=== PATIENT | female | born 1985 | race American Indian/Alaskan Native ===

== ENCOUNTER 2017-05-10 19:01 | Emergency (ER) | payer SELFPAY ==
[2017-05-11] MEDS ORDERED: DUONEB *Not for PRN Use IH ONE (00:47)
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
[2017-05-11 02:11] VITALS: BP 138/80
== END 2017-05-11 02:21 | disposition home or self-care (01) ==
LOC: ED 19:01
DX: J70.5 Respiratory conditions due to smoke inhalation (principal)
CPT/HCPCS: 99282

== ENCOUNTER 2020-02-13 09:44 | Inpatient (IN) | payer BC, OTHER ==
--- NOTE | 2020-02-12 19:06 | History and Physical Report ---
History of Present Illness Date of examination: 02/09/20 History of present illness: Menstrual History Regularity: irregular Menses every: 28-35 days Duration: 5 LMP: 06/02/2019 LMP reliability: month known LMP character: normal test type: urine test BC at conception: none Planned ? yes EDC Calculations LMP: 03/08/2020 EDC Confirmation: 02/17/2020 Past History : 3 Term Births: 2 Premature Births: 0 Living Children: 0 Para: 2 Mult. Births: 0 Prev : 0 Prev. attempt? 0 Aborta: 0 Elect. Ab: 0 Spont. Ab: 0 Ectopics: 0 # 1 Delivery date: 03/21/2006 Weeks Gestation: 39 labor: no Delivery type: Hours of labor: 12 Anesthesia type: epidural Delivery location: [facility] Sex: Female weight: 8 lbs ? oz Name: Kasey Comments: She states she was pushing and the baby was "stuck" # 2 Delivery date: 01/07/2012 Weeks Gestation: 39 labor: no Delivery type: Hours of labor: no labor Anesthesia type: spinal Delivery location: [facility] Infant Sex: Male weight: 7 lbs Name: Glenn Comments: Scheduled repeat Past Medical History: Abnormal Pap Smear 2018, normal 2019 per patient report Headaches(Migraines) Past Surgical History: (2005) (2011) Family History Summary: Mother - Has Family History of CVA or Stroke - Entered On: 08/22/2019 Father - Has Family History Coronary Heart Disease male < 55 - Entered On: 08/22/2019 Mother - Has Family History Coronary Heart Disease female < 65 - Entered On: 08/22/2019 Social History: Patient is single Smoking History: Patient has never smoked. 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 Infection History Hx of STD: HPV HIV Risk Eval: no Hepatitis B Risk Eval: low risk Personal hx. of genital herpes: no Partner hx. of genital herpes: no Rash, Viral, or Febrile illness since last LMP? no Varicella/Chicken Pox Status: Previous Disease TB Risk: no Genetic History ADVANCED MATERNAL AGE Congenital Heart Defect: Mom: no Dad: no Meche Disease: Mom: no Dad: no Thalassemia Mom: no Dad: no Neural Tube Defect Mom: no Dad: no Down's Syndrome Mom: no Dad: no Bhupinder-Sachs Mom: no Dad: no Sickle Cell Disease/Trait Mom: no Dad: no Hemophilia Mom: no Dad: no Muscular Dystrophy Mom: no Dad: no Cystic Fibrosis Mom: no Dad: no [place] Chorea Mom: no Dad: no Mental Retardation Mom: yes Dad: no Fragile X Mom: no Dad: no Other Genetic/Chromosomal Disorder Mom: no Dad: no Child w/other defect Mom: no Dad: no Other: nephew Trisomy 21, MR Enviromental Exposures Xray Exposure: no Medication, drug, or alcohol use since LMP: no Chemical/Other Exposure: no Exposure to Cat Liter: no Hx of Parvovirus (Fifth Disease): no 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 Current Allergies: No known allergies Past History Past Medical History: other (SEE HPI FOR DETAILS) Past Surgical History: section, other (SEE HPI FOR DETAILS) PRESIDENT ERGONOMIC CONSULTING History: herpes, other (SEE HPI FOR DETAILS) Family/Genetic History: other (SEE HPI FOR DETAILS) - Obstetrical History Expected Date of Delivery: 02/17/20 Actual Gestation: 39 Week(s) 2 Day(s) : 3 Para: 2 Hx # Term Pregnancies: 2 Number of Pregnancies: 0 Spontaneous Abortions: 0 Induced : 0 Number of Living Children: 2 Medications and Allergies Allergies Allergy/AdvReac Type Severity Reaction Status Date / Time No Known Allergies Allergy Unverified 05/10/17 19:04 Review of Systems Constitutional: other (SEE HPI FOR DETAILS) - Physical Exam Breasts: Positive: deferred Cardiovascular: Regular rate Abdomen: Positive: normal appearance Genitourinary (Female): Positive: normal external genitalia Uterus: Positive: enlarged Extremities: Positive: edema (1+) - Obstetrical FHR: auscultation normal Results All other labs normal. Assessment and Plan - Patient Problems (1) 39 weeks gestation of Status: Acute (2) Previous delivery affecting Status: Acute Plan to address problem: Discuss the risks of the surgery including infection, bleeding possibly heavy e nough to require a blood transfusion, possible damage to bowel, bladder or ureter. Her questions were answered. Patient understands and desires to proceed The patient was instructed/informed the following: (3) Encounter for sterilization Status: Acute Plan to address problem: Patient desires sterilization. Patient declined temporary contraceptives. Discuss the permanency of sterilization. High risk of regret and 0.5 to 1% risk of failure. Discussed possible ovarian cancer prevention benefit of salpingectomy with its increased risks of blood loss vs partial salpingectomy. Questions answered Patient understands and desires to proceed with partial salpingectomy (4) Gestational diabetes Status: Acute Qualifiers: Gestational diabetes mellitus control: diet-controlled Trimester: third trimester Qualified Code(s): O24.410 - Gestational diabetes mellitus in , diet controlled (5) Genital herpes Status: Chronic Qualifiers: Herpes simplex infection site: unspecified Qualified Code(s): A60.00 - Herpesviral infection of urogenital system, unspecified
[2020-02-13] MEDS ORDERED: METOCLOPRAMIDE 10 MG/2 ML INJ IV SCH (10:00)
[2020-02-13] MEDS ORDERED: ceFAZolin/Water 2 GM/20 ML 2 GM/20 ML SYRINGE IV NR (10:00)
[2020-02-13] MEDS ORDERED: BICITRA ORAL LIQD 30ML PO SCH (10:00)
[2020-02-13] MEDS ORDERED: FAMOTIDINE 20 MG/2 ML INJ IV SCH (10:00)
[2020-02-13 12:13] LABS: Basophils % (Auto) 0.4 % (0.0-1.8); Eosinophils # (Auto) 0.1 K/mm3 (0.0-0.4); Eosinophils % (Auto) 1.3 % (0.0-4.3); Hemoglobin 10.9 gm/dl (10.1-14.3); Lymphocytes # (Auto) 1.7 K/mm3 (1.2-5.4); Lymphocytes % (Auto) 19.5 % (13.4-35.0); Mean Corpuscular HGB Conc 32 % (30-34); Mean Corpuscular Volume 76 fl (79-97); Monocytes % (Auto) 11.3 % (0.0-7.3); Platelet Count 170 K/mm3 (140-440); Red Blood Count 4.46 M/mm3 (3.65-5.03)
[2020-02-13 12:15] LABS: Red Cell Distribution Width 20.4 % (13.2-15.2)
[2020-02-13] MEDS: LACTATED RINGERS 1,000 ML IV SCH ×2 (12:26→14:17)
--- NOTE | 2020-02-13 13:12 | Anesthesia Day of Surgery ---
Anesthesia Day of Surgery - Day of Surgery Patient Examined: Yes Patient H&P Reviewed: Yes Patient is NPO: Yes
--- NOTE | 2020-02-13 13:12 | Anesthesia Consultation ---
Anesthesia Consult and Med Hx Date of service: 02/13/20 - Airway Anesthetic Teeth Evaluation: Good ROM Head & Neck: Adequate Mental/Hyoid Distance: Adequate Mallampati Class: Class II Intubation Access Assessment: Probably Good - Pulmonary Exam CTA: Yes - Cardiac Exam Cardiac Exam: RRR - Pre-Operative Health Status ASA Pre-Surgery Classification: ASA2 Proposed Anesthetic Plan: Spinal - Pulmonary Hx Asthma: No - Cardiovascular System Hx Hypertension: No - Central Nervous System Hx Seizures: No Hx Psychiatric Problems: No - Endocrine Hx Renal Disease: No Hx Hypothyroidism: No Hx Hyperthyroidism: No - Hematic Hx Anemia: No Hx Sickle Cell Disease: No - Other Systems Hx Alcohol Use: No - Additional Comments Anesthesia Medical History Comments: headaches
[2020-02-13] MEDS ORDERED: BUPIVACAINE/PF (0.5%) 5 MG/1 ML 30 ML VIAL INFILTRATI ONE (16:49)
[2020-02-13] MEDS ORDERED: KETOROLAC 30 MG/1 ML INJ ONE (16:49)
[2020-02-13] MEDS ORDERED: ONDANSETRON 4 MG/2 ML INJ ONE (16:49)
[2020-02-13] MEDS ORDERED: LACTATED RINGERS 1,000 ML ONE (16:49)
[2020-02-13] MEDS ORDERED: OXYTOCIN 10 UNIT/1 ML INJ ONE (16:49)
[2020-02-13] MEDS ORDERED: dexAMETHasone 20 MG/5 ML VIAL ONE (16:49)
[2020-02-13] MEDS ORDERED: DEXMEDETOMIDINE 200 MCG/2 ML VIAL IV ONE (16:49)
--- NOTE | 2020-02-13 17:50 | Operative Report ---
Operative Report Operative Report: Date of procedure: February 13, 2020 Pre-operative diagnosis: Intrauterine at 39 weeks with previous sections and desires permanent sterilization Post-operative diagnosis: Same Procedure name(s): Repeat low transverse section with bilateral tubal ligation on modified [place] type Surgeon: Marlon Lira MD Thread Grinder Tool: Jennifer Chaudhry CST Anesthesia: Spinal EBL: 1000 cc Complications: None Findings: Patient with some thick adhesions between the anterior abdominal wall and the uterus causing a right rotation to uterus also adhesions to omentum. Patient with normal-appearing fallopian tubes bilaterally. Female , weight 8 pounds 8 ounces and Apgars 9 at 1 minute and 9 at 5 minutes Specimen(s): Portion of the right and left fallopian tube Procedure: The patient was brought to the operating room. A spinal was placed without any complications. She was then placed in left lateral tilt. Prepped and draped in the usual sterile manner. After testing for adequate anesthesia level, a Pfannenstiel incision was made through her previous scar. This incision was taken down to the fascia. The fascia was then nicked in the midline. This incision was extended out laterally with Ledbetter scissors. The fascia was then sharply and bluntly from the underlying rectus muscles. The rectus muscles were bluntly and sharply through skin thick scar. The peritoneum was then entered carefully with sharp and blunt dissection through scarring of the rectus muscle and omentum. This incision was spread vertically with care not to damage the bladder below. The Jerad self- retaining tractor was then placed without any difficulty. The bladder flap was then formed sharply and bluntly with Metzenbaum scissors. A transverse incision was made in lower uterine segment. This incision was extended laterally with the operators fingers. The amniotic sac was then entered bluntly with the tarring machine operator's fingers. The infant was delivered from the vertex position. Bulb suction on the mother's abdomen. Cord was double clamped and cut. The was then passed to the nursery personnel who were in attendance. The above scores were given by the nursery personnel. The placenta was then bluntly removed. The uterus was then externalized and wiped clean the remaining products. The uterine incision was closed in layers. The first incision was closed in a locking manner using 0 Vicryl. This was followed by imbricating sti tch also with 0 Vicryl. Attention was then switched to the patient's fallopian tubes. Each fallopian tube was identified by its fimbriated end. A portion of each tube was grabbed with the Maggie clamp approximately 2-3 cm from the cornua. Each loop was double ligated with 0 plain suture. The loop were cut with Metzenbaum scissors. Each stump was found to be hemostatic and cauterized with the Bovie. Attention was then switched back to the uterine closure. Additional [id number] sutures had to be placed along the uterine incision and also at areas were lysis of adhesions were performed. This closure was hemostatic. The bladder flap was copiously irrigated and found to be hemostatic. The pelvis was copiously irrigated and found to be hemostatic. The uterus was then placed back to the patient's abdomen. The tubal stumps were inspected and found to be hemostatic. Surgicel was placed along the uterine closure and also repair of the lysis of adhesions. The retractors were removed. The rectus muscles were inspected and found to be hemostatic. The fascia was then closed in a running manner using 0 Vicryl. This incision was hemostatic after irrigation and Bovie. The skin was reapproximated with 4-0 Vicryl subcuticularly. Dermabond was placed on the skin incision. The patient tolerated procedure well. Her urine was clear. The infant was admitted to the well baby nursery. The patient was accompanied to recovery room in good condition. Instrument count correct x3.
--- NOTE | 2020-02-13 18:30 | Post Anesthesia Evaluation ---
- Post Anesthesia Evaluation Patient Participated: Yes Airway Patent: Yes Stable Respiratory Function: Yes Nausea/Vomiting: No Temp > 96.8F: Yes Pain Manageable: Yes Adequeate Hydration: Yes Anesthesia Complications: No Block Receding Appropriately: Yes
--- NOTE | 2020-02-13 18:31 | Progress Note ---
Regional Anesthesia Block - Regional Anesthesia Block Start Time: 18:00 Stop Time: 18:05 Performed By:: ALEXSANDRA EM Procedure: U/S guided bilateral tap block performed for post-operative pain requested by Dr. Lira. H&P & labs reviewed. Procedure explained, questions answered, consent obtained. Patient in the supine position with ekg, blood pressure cuff and pulse ox on and working in PACU. Timeout performed immediately before start of procedure. Probe placed in the mid-axillary line and the external oblique, internal oblique, and transverse abdominus muscles identified. Skin was cleansed with 0.5% Chlorahexadine and allowed to dry. A 4" 20 G Uribe echogenic needle was advanced in plane until the tip was in the fascial plane between the internal oblique and the transverse abdominus. After negative aspiration 35 ml/side of [30 ml 0.5% Bupivacaine], [50 mcg dexmedetomidine], [10 mg dexamethasone], and [40 ml sterile saline] was injected in 5 ml increments with negative aspiration in between. Patient tolerated procedure well.
[2020-02-13] MEDS ORDERED: NALOXONE 0.4 MG/1 ML INJ IV PRN (19:41)
[2020-02-13] MEDS ORDERED: HYDROcodone/ACETAMINOPHEN 5-325 MG TAB PO PRN (19:41)
[2020-02-13] MEDS ORDERED: OXYTOCIN DRIP 30 UNITS/500 ML BAG IV SCH ×2 (19:41→20:00)
[2020-02-13] MEDS ORDERED: MAGNESIUM HYDROXIDE (MOM) ORAL LIQD UDC PO PRN (19:41)
[2020-02-13] MEDS ORDERED: SODIUM CHLORIDE 0.9% 1000 ML 1,000 ML IV SCH (19:41)
[2020-02-13] MEDS ORDERED: WITCH HAZEL/ GLYCERIN PAD TP PRN (19:41)
[2020-02-13] MEDS ORDERED: LANOLIN/ZINC/DIMETHICONE (LANSINOH) 7 GM TP PRN (19:41)
[2020-02-14] MEDS: KETOROLAC 30 MG/1 ML INJ IV SCH ×4 (00:34→18:26)
[2020-02-14] MEDS: ceFAZolin/NS 1 GM/50 ML 1 GM/50 ML BAG IV SCH ×2 (00:35→08:42)
[2020-02-14 06:08] LABS: Hematocrit 27.2 % (30.3-42.9); Hemoglobin 8.8 gm/dl (10.1-14.3)
--- NOTE | 2020-02-14 08:18 | Progress Note ---
Assessment and Plan A: 34 y.o. s/p rpt , POD #1. P: Continue with care. Advance diet as tolerated. Encourage ambulation today. Anticipate discharge home 02/14. Subjective - Subjective Date of service: 02/14/20 (Pt doing well) Principal diagnosis: s/p rpt , POD #1 Patient reports: pain well controlled Schriever: doing well Objective - Vital Signs Latest vital signs: Vital Signs Temp Pulse Resp BP BP Pulse Ox 02/14/20 05:26 98.1 F 77 18 112/77 97 02/14/20 00:34 18 02/14/20 00:19 97.6 F 75 18 126/77 100 02/13/20 20:00 97.8 F 69 16 121/66 99 02/13/20 19:00 64 11 L 131/68 99 02/13/20 18:45 62 16 137/77 99 02/13/20 18:30 58 L 13 133/85 99 02/13/20 18:15 62 15 134/67 99 02/13/20 18:00 66 14 110/60 100 02/13/20 17:52 97.5 F L 67 15 110/60 97 02/13/20 12:14 90 119/77 02/13/20 12:10 83 96 02/13/20 12:05 95 H 98 02/13/20 12:00 88 98 02/13/20 11:55 78 98 02/13/20 11:50 81 99 02/13/20 11:45 92 H 97 02/13/20 11:40 87 98 02/13/20 11:35 89 99 02/13/20 11:30 90 97 02/13/20 11:25 83 97 02/13/20 11:20 89 97 02/13/20 11:15 98.2 F 92 H 20 100 02/13/20 11:10 96 H 98 02/13/20 11:05 100 H 99 02/13/20 11:00 94 H 97 02/13/20 10:55 98 H 98 02/13/20 10:50 83 97 02/13/20 10:45 79 97 02/13/20 10:40 94 H 98 02/13/20 10:35 83 97 02/13/20 10:34 84 129/85 Intake and Output 1102/14/20 02/14/20 22:59 06:59 14:59 Intake Total 150 440 Output Total 550 2800 Balance -400 -2360 Intake: IV 100 Oral 50 440 Output: Urine 550 2800 Indwelling Catheter 150 1100 Uretheral (Love) 350 1700 Other: Total, Intake Amount 50 200 Total, Output Amount 150 500 - Exam Breasts: Present: deferred Cardiovascular: Present: Regular rate Lungs: Present: Normal air movement Abdomen: Present: normal appearance, soft Vulva: both: normal Uterus: Present: normal, firm Extremities: Present: normal Deep Tendon Reflex Grade: Normal +2 Incision: Present: dry, intact, dressed (No drainage noted. ) - Labs Labs: Abnormal lab results 02/13/20 02/14/20 02/14/20 Range/Units 11:15 00:28 05:43 Hgb 8.8 L (10.1-14.3) gm/dl Hct 27.2 L D (30.3-42.9) % MCV 76 L (79-97) fl MCH 24 L (28-32) pg RDW 20.4 H (13.2-15.2) % Upson % (Auto) 11.3 H (0.0-7.3) % Upson # (Auto) 1.0 H (0.0-0.8) K/mm3 POC Glucose 153 H (70-105) mg/dL
[2020-02-14] MEDS: FERROUS SULFATE 325 MG TAB PO SCH (09:59)
[2020-02-14] MEDS: PRENATAL VIT27-FE FUMARATE-FOLIC ACID VIT TAB PO SCH (09:59)
[2020-02-14] MEDS ORDERED: FLU VACC QUAD 2020-2021 (6 months +)/PF 60 0.5 ML SYRINGE IM ONE (12:00)
[2020-02-14] MEDS: HYDROcodone/ACETAMINOPHEN 5-325 MG TAB PO PRN (16:56)
[2020-02-14] MEDS ORDERED: IBUPROFEN 800 MG TAB PO PRN (18:30)
[2020-02-15] MEDS: HYDROcodone/ACETAMINOPHEN 5-325 MG TAB PO PRN ×2 (01:08→09:46)
[2020-02-15] MEDS ORDERED: DIPHtheria,PERTUSSIS(ACELL),TETANUS VACCINE/PF 0.5 ML VIAL IM ONE (06:00)
--- NOTE | 2020-02-15 07:55 | Discharge Summary ---
Providers - Providers Date of Admission: 02/13/20 09:44 Date of discharge: 02/15/20 (desires d/c home today) Attending physician: TIMUR RAY 02/13/20 19:41 Consult to Middle School Football Coach [CONS] Routine Reason For Exam: Primary care physician: TIMUR RAY Hospitalization Reason for admission: repeat c/s Condition: Good Pertinent studies: postop H&H 8.8/27.2, asymptomatic anemia d/t acute blood loss Procedures: repeat c/s Hospital course: uncomplicated repeat c/s and postop course Disposition: DC- TO HOME OR SELFCARE - Discharge Diagnoses (1) delivery delivered Status: Acute Core Measure Documentation - Palliative Care Palliative Care/ Comfort Measures: Not Applicable - Core Measures Any of the following diagnoses?: none Exam - Physical Exam Narrative exam: Bottle feeding, fundus firm, lochia scant, VSSAF, incision D&I - Constitutional Vitals: Temp Pulse Resp BP Pulse Ox 98.1 F 92 H 20 116/69 100 02/15/20 00:40 02/15/20 00:40 02/15/20 01:08 02/15/20 00:40 02/15/20 00:40 General appearance: Present: no acute distress, well-nourished - EENT Eyes: Present: PERRL ENT: hearing intact, clear oral mucosa - Neck Neck: Present: supple, normal ROM - Respiratory Respiratory effort: normal Respiratory: bilateral: CTA - Cardiovascular Rhythm: regular Heart Sounds: Absent: rub, click - Extremities Extremities: No edema - Abdominal General gastrointestinal: Present: soft, non-tender, normal bowel sounds Female genitourinary: Present: normal - Integumentary Integumentary: Present: clear, warm, dry - Musculoskeletal Musculoskeletal: gait normal, strength equal bilaterally - Psychiatric Psychiatric: appropriate mood/affect, intact judgment & insight - Neurologic Neurologic: CNII-XII intact, moves all extremities Plan Activity: advance as tolerated Diet: regular Wound: open to air, keep clean and dry Follow up with: TIMUR RAY MD [Primary Care Provider] - 7 Days (Congratulations! Please call [phone] to schedule your incision check in 1 week. Call for any questions or concerns.) Prescriptions: Ferrous Sulfate [Feosol 325 MG tab] 325 mg PO BID #60 tablet Ibuprofen [Motrin 800 MG tab] 800 mg PO Q6H PRN #30 tablet PRN Reason: Pain oxyCODONE /ACETAMINOPHEN [Percocet 5/325 mg] 1 - 2 tab PO Q6HR PRN #20 tablet PRN Reason: Pain
[2020-02-15] MEDS: PRENATAL VIT27-FE FUMARATE-FOLIC ACID VIT TAB PO SCH (09:44)
[2020-02-15] MEDS: FERROUS SULFATE 325 MG TAB PO SCH (09:44)
[2020-02-15] MEDS ORDERED: FLU VACC QUAD 2020-2021 (6 months +)/PF 60 0.5 ML SYRINGE IM ONE (12:00)
[2020-02-15 13:14] VITALS: BP 126/77
== END 2020-02-15 13:30 | disposition home or self-care (01) | DRG 784 ==
LOC: APU 09:44 → OB 19:26
PROVIDERS: ADMIT Obstetrics & Gynecology; ATTEND Obstetrics & Gynecology
PROC: 10D00Z1 Extraction of Products of Conception, Low, Open Approach (ICD-10-PCS; principal; 2020-02-13)
PROC: 0UB70ZZ Excision of Bilateral Fallopian Tubes, Open Approach (ICD-10-PCS; 2020-02-13)
PROC: 3E0234Z Introduction of Serum, Toxoid and Vaccine into Muscle, Percutaneous Approach (ICD-10-PCS; 2020-02-15)
DX: O34.211 Maternal care for low transverse scar from previous cesarean delivery (principal); D62 Acute posthemorrhagic anemia; Z3A.39 39 weeks gestation of pregnancy; O98.52 Other viral diseases complicating childbirth; O24.410 Gestational diabetes mellitus in pregnancy, diet controlled; A60.00 Herpesviral infection of urogenital system, unspecified; Z37.0 Single live birth; Z82.3 Family history of stroke; Z82.49 Family history of ischemic heart disease and other diseases of the circulatory system; O24.420 Gestational diabetes mellitus in childbirth, diet controlled; B00.9 Herpesviral infection, unspecified; O99.892 Other specified diseases and conditions complicating childbirth; N73.6 Female pelvic peritoneal adhesions (postinfective); O99.02 Anemia complicating childbirth; Z23 Encounter for immunization; Z20.828 Contact with and (suspected) exposure to other viral communicable diseases; Z30.2 Encounter for sterilization
CPT/HCPCS: 36415; 82962; 85014; 85018; 85025; 86850; 86900; 86901; G0378; J0690; J1100; J1885; J2405; J2590; J2765; J3490; J7120; U0003